=== PATIENT | female | born 1970 | race Caucasian/White ===

== ENCOUNTER 2016-11-13 06:25 | Day surgery (SDC) | payer OTHER ==
[2016-11-13] MEDS ORDERED: LR 1,000 ML IV ONE (06:48)
[2016-11-13] MEDS ORDERED: LIDOCAINE 1% 5 ML SDV ONE (06:50)
[2016-11-13] MEDS ORDERED: ceFAZolin 2 GM/DEXTROSE 100 ML IV ONE (07:30)
[2016-11-13] MEDS ORDERED: BUPIVACAINE 0.5% 30 ML SDV ONE (07:44)
[2016-11-13] MEDS ORDERED: CALCIUM CHLORIDE 1 GM/10 ML INJ ONE (07:44)
[2016-11-13] MEDS ORDERED: THROMBIN (RECOMBINANT) 5,000 UNIT VIAL TP ONE (07:44)
[2016-11-13] MEDS ORDERED: LIDOCAINE 1% 30 ML SDV ONE (07:44)
[2016-11-13] MEDS ORDERED: BACITRACIN 50,000 UNITS/10 ML SYR IRR ONE (07:45)
[2016-11-13] MEDS ORDERED: ROPIVACAINE HCL 20 MG/10 ML INJ EP ONE (07:45)
[2016-11-13] MEDS ORDERED: ONDANSETRON 4 MG/2 ML VIAL ONE (07:46)
[2016-11-13] MEDS ORDERED: DEXAMETHASONE 4 MG/ML VIAL ONE (07:46)
[2016-11-13] MEDS ORDERED: LIDOCAINE 2% 5 ML SDV ONE (07:46)
[2016-11-13] MEDS ORDERED: fentaNYL 100 MCG/2 ML INJ ONE (07:47)
[2016-11-13] MEDS ORDERED: PROPOFOL/EMULSION 500 MG/50 ML BOTTLE IV ONE (07:47)
[2016-11-13] MEDS ORDERED: MIDAZOLAM 2 MG/2 ML VIAL ONE (08:03)
[2016-11-13] MEDS ORDERED: ENOXAPARIN 40 MG/0.4 ML SYR SC ONE (10:00)
--- NOTE | 2016-11-13 14:18 | GOP ---
[f rep st] OPERATIVE REPORT DATE OF OPERATION: 11/13/2016 SURGEON: Shilpa Castrejon DPM ANESTHESIA: MAC. ANESTHESIOLOGIST: Scott Cole MD. PREOPERATIVE DIAGNOSIS: 1. Recalcitrant plantar fasciitis, left foot. 2. Peroneal tendinitis, left. POSTOPERATIVE DIAGNOSIS: 1. Recalcitrant plantar fasciitis, left foot. 2. Peroneal tendinitis, left. PROCEDURE PERFORMED: FINDINGS: ESTIMATED BLOOD LOSS: Less than 5 cc. DESCRIPTION OF PROCEDURE: PROCEDURES PERFORMED: 1. Plantar fascial release, left foot. 2. Platelet rich plasma injection, toenails, lateral ankle, left. INDICATIONS FOR PROCEDURES: The patient with recalcitrant heel pain unresponsive to multiple conservative treatment efforts, which have included shoe gear, inserts, physical therapy, stretching, immobilization and anti- inflammatory medications. The patient's pain is most severe plantar heel, and as a result, she has been compensating walking supinated and has a peroneal tendinitis. MRI study has been completed due to the severity of her pain to ensure no other pathology, MRI revealing the plantar fasciosis with micro tears. In addition, peroneal tendonitis, no gross tear of the peroneals. At this time, patient elects to proceed with surgery and PRP injections. PROCEDURE AND FINDINGS: Patient was brought into the operating room, placed on the operating table in the supine position. Intravenous sedation was administered by the anesthesiologist. A posterior tibial and peripheral nerve block was obtained utilizing a total of a 1:1:1 mix of 1% lidocaine plain, 0.2% ropivacaine plain, and 0.5% Marcaine plain. The lower extremity was prepped and draped in the usual sterile manner. After the limb was elevated, exsanguinated with an Esmarch bandage, ankle tourniquet inflated to 225 mmHg and the procedure was begun. Stockinette utilized under the ankle cuff. Attention was directed 1.5 cm anterior to the fat pad. The incision was along the relaxed skin tension lines, measuring approximately an inch in length. Incision was carefully deepened through the fatty tissue. Weitlaner was used for retraction. Small bleeders cauterized. The tight medial band, fascia was identified and transected with a sharp 15 blade. A [place] elevator was utilized underneath the band to ensure no injury to the deeper structures. Then central band identified. Then the digits were dorsiflexed, and 2/3 of the plantar fascia central band was released, gapping of the plantar fascia noted. A small section of plantar fascia was resected and sent to Pathology for gross and microscopic examination. The wound was copiously irrigated bacitracin irrigation solution. Tourniquet was released, and a normal hyperemic response was noted to all digits. Subcutaneous closure achieved with 4-0 Monocryl, and the skin was closed with 3- 0 and 4-0 Prolene in a horizontal suture mattress to place, 1 vertical mattress and simple interrupted sutures. PLATELET RICH PLASMA INJECTION: Attention was directed toward the lateral ankle , where just at the tip of the lateral malleolus where her maximum point of tenderness was noted, 2.5 cc of platelet rich plasma was injected. Attention was directed to the plantar central aspect of the calcaneus proximal to the incision site. The remaining 2.5 cc of a platelet rich plasma was injected. Dressings included Xeroform, 4 x 4's, fluffs, Ирина reinforced with tape and an [place] bandage. The patient tolerated the procedure and anesthesia well. Left the operating room, vital signs stable and vascular status intact to all digits. COMPLICATIONS: There were no intraoperative complications. CONDITION: In postoperative recovery, the patient was doing well. She was fitted with a Cryo/Cuff. Her family member will be providing her transportation home. She is to follow up in our office in 2 days for wound check. PROGNOSIS: Good. PATHOLOGY: Section of the plantar fascia sent. INJECTABLES: No additional injectables. PROGNOSIS: Good. /[id number]/MODL MTDD
== END 2016-11-13 10:46 | disposition home or self-care (01) ==
LOC: FSGY 06:25
PROVIDERS: ATTEND Podiatrist
PROC: 0J8R0ZZ Division of Left Foot Subcutaneous Tissue and Fascia, Open Approach (ICD-10-PCS; principal; 2016-11-13 08:15)
PROC: 3E023GC Introduction of Other Therapeutic Substance into Muscle, Percutaneous Approach (ICD-10-PCS; 2016-11-13 08:15)
DX: M72.2 Plantar fascial fibromatosis (principal); M76.72 Peroneal tendinitis, left leg
CPT/HCPCS: 0232T; 28008; J0690; J1100; J1650; J2250; J2405; J2704; J2795; J3010

== ENCOUNTER → 2017-11-26 | Outpatient (CLI) | payer OTHER | LOC: FIMAGING 10:22 | DX: M25.511 Pain in right shoulder (principal) ==